=== PATIENT | male | born 1990 | race Caucasian/White ===

== ENCOUNTER 2018-12-11 23:52 | Emergency (ER) | payer SELFPAY ==
[2018-12-11 23:58] VITALS: BP 137/82; PULSE 80; RESP 18; TEMP 36.8; O2SAT 100; BMI 26.6
--- NOTE | 2018-12-12 00:27 | ED_ITS ---
HPI - Male Genitourinary General Chief complaint: Urogenital-Male Stated complaint: wants warts removed Time Seen by Provider: 12/12/18 00:10 Source: patient Mode of arrival: ambulatory Limitations: no limitations History of Present Illness HPI Narrative: Patient is a 28-year-old male here for evaluation of genital warts. He states he has had genital warts for almost a year now. Has not seen a primary doctor regarding them. He states that he becomes very irritated with walking because the location of the warts. Denies any other history of STDs. Related Data Previous Rx's Medication Instructions Recorded podofilox 1 applictn TOP BID 3 Days #3.5 ml 12/12/18 Allergies Allergy/AdvReac Type Severity Reaction Status Date / Time Penicillins [PENICILLINS] Allergy Unknown Unverified 09/23/17 12:28 Review of Systems Gastrointestinal Gastrointestinal: Denies abdominal pain Genitourinary Denies dysuria and Denies scrotal swelling Integumentary/Breasts Comments: Genital warts Hematologic/Lymphatic Denies easy bleeding and Denies easy bruising [facility] Medical History Healthy adult (Acute) Social History Smoking Status: Current every day smoker Social History Smoking Status: Current every day smoker Exam Initial Vital Signs Initial Vital Signs: Vital Signs Temperature 98.2 F 12/11/18 23:58 Pulse Rate 80 12/11/18 23:58 Respiratory Rate 18 12/11/18 23:58 Blood Pressure 137/82 12/11/18 23:58 Pulse Oximetry 100 12/11/18 23:58 Const General: cooperative, healthy appearing, comfortable, well developed, well groomed and No acute distress Orientation: alert and awake Resp Effort & Inspection: normal respiratory effort Cardio Rate: regular rate External: circumcised Penis: normal penis Meatus: meatus normal Scrotum: scrotum normal Testes: normal Skin Other: Patient with multiple genital warts both located on the scrotum and on the penile shaft. He has 2 very large warts located along the fold between the inner thigh in the scrotum bilaterally. Neuro General: alert and awake Course Vital Signs - 8 hr 12/11/18 23:58 Temperature 98.2 F Pulse Rate 80 Respiratory Rate 18 Blood Pressure 137/82 Pulse Oximetry 100 MDM - Male Genitourinary MDM Narrative Medical decision making narrative: Patient's physical exam is consistent with genital warts. These are not new for him. He does have very large warts along either side. None of the warts are causing any problems with urination. Informed the patient that we are unable to ?freeze ?any warts here in the emergency department due to the lack of a quit min to do this. He states he does not have a primary provider. He was given the phone number for the health resources coordinator here at the hospital to help him establish her primary provider. He was given a prescription for the warts which will hopefully help with his symptoms. We did discuss the genital warts. We did discuss that he could potentially passed these on a any sexual partners. Informed him that any treatment for these particular warts does not necessarily cure him of any disease and he could potentially get these again. Patient expressed understanding and agreement. Discharge Plan Departure Patient Disposition: Home Clinical Impression: Genital warts Discharge Date/Time: 12/12/18 00:43 Interventions: ED Discharge Assessment Last Done: 12/12/18 00:43 Instructions: DI for Genital Warts Activity Restrictions/Additional Instructions: On Thursday contact the health human resources supervisor at [phone] to help with establishing a primary provider. Use the medication as directed. Return to the emergency department for any new or worsening symptoms Prescriptions: New podofilox 0.5 % solution 1 applictn TOP BID 3 Days Qty: 3.5 RF: 3
== END 2018-12-12 00:43 | disposition home or self-care (01) ==
PROVIDERS: Emergency Provider Emergency Medicine
DX: A63.0 Anogenital (venereal) warts (principal)
CPT/HCPCS: 99282; 99283

== ENCOUNTER 2020-10-24 08:49 | Emergency (ER) | payer SELFPAY ==
[2020-10-24] VITALS (7 sets, daily range): BP systolic 133–152; BP diastolic 70–89; PULSE 72–89; RESP 18–20; TEMP 36.8; O2SAT 95–99; BMI 27.8
--- NOTE | 2020-10-24 08:56 | DI.RAD.S_ITS ---
PROCEDURE: XR CHEST 2V INDICATIONS: pleuritic chest pain TECHNIQUE: 2 views of the chest were acquired. COMPARISON: None. FINDINGS: Surgical changes and devices: None. Lungs and pleura: Lungs are clear. No pleural effusions or pneumothorax. Mediastinum: Mediastinal contours are normal. Heart size is normal. Bones and chest wall: No suspicious bony abnormalities. Soft tissues appear unremarkable. IMPRESSION: 1. No acute cardiopulmonary disease. Dictated by: Vanita Lehman M.D. on 10/24/2020 at 9:37 Approved by: Vanita Lehman M.D. on 10/24/2020 at 9:38
--- NOTE | 2020-10-24 09:02 | ED_ITS ---
HPI - Chest Pain General Chief Complaint: Chest Pain Stated Complaint: chest pain on left side Time Seen by Provider: 10/24/20 08:50 Source: patient Mode of arrival: Ambulatory Limitations: no limitations History of Present Illness HPI narrative: 30-year-old male smoker who uses a vape pen presents by himself with a chief complaint of a few months of sharp and stabbing left-sided chest pain. He he thinks it seems to get worse when he leans forward. He denies any change with palpation and occasionally has increased pain with deep breath. He denies any cough, hemoptysis or shortness of breath. He denies any recent travel, history of clot Related Data Previous Rx's Medication Instructions Recorded colchicine 0.6 mg PO BID 30 Days #60 tab 10/24/20 ibuprofen 600 mg PO TID 7 Days #21 tab 10/24/20 Allergies Allergy/AdvReac Type Severity Reaction Status Date / Time Penicillins [PENICILLINS] Allergy Unknown Verified 10/24/20 09:27 Review of Systems Constitutional Constitutional: Denies chills, Denies fatigue, Denies fever(s), Denies frequent falls, Denies lethargy and Denies weakness Eyes Eyes: Denies change in vision, Denies eye discharge, Denies irritation and Denies loss of vision ENT Ears, Nose, Mouth, and Throat: Denies change in voice, Denies dizziness, Denies neck pain, Denies sore throat and Denies throat swelling Cardiovascular Cardiovascular: Reports chest pain, Denies irregular heart rhythm, Denies lightheadedness, Denies palpitations, Denies dyspnea, Denies dyspnea on exertion and Denies orthopnea Respiratory Respiratory: Denies cough, Reports pain on inspiration, Denies dyspnea, Denies dyspnea on exertion and Denies wheezing Gastrointestinal Gastrointestinal: Denies abdominal pain, Denies change in bowel habits, Denies diarrhea, Denies nausea and Denies vomiting Musculoskeletal Musculoskeletal: Denies neck pain and Denies numbness Integumentary/Breasts Skin/Breast: Denies pruritus, Denies erythema, Denies rash and Denies wounds Neurologic Neurologic: Denies behavioral changes, Denies confusion, Denies dizziness, Denies frequent falls, Denies loss of vision, Denies numbness and Denies weakness Psychiatric Psychiatric: Denies anxiety, Denies behavioral changes, Denies confusion, Denies depression, Denies homicidal ideation and Denies suicidal ideation Endocrine Endocrine: Denies fatigue, Denies flushing and Denies palpitations Hematologic/Lymphatic Hematologic/Lymphatic: Denies easy bruising Allergic/Immunologic Allergic/Immunologic: Denies urticaria, Denies throat swelling and Denies wheezing Patient History Medical History (Updated 10/24/20 @ 09:47 by Bird Ascencio DO) Healthy adult Social History Smoking Status: Current every day smoker Smoking Status: Current every day smoker alcohol intake frequency: 0-2 drinks per day Substance Use Type: marijuana Exam Narrative Exam Narrative: GENERAL: [30] year old patient appears stated age. Well-no urished, well-developed patient, in mild distress. HEAD: Atraumatic. Normocephalic. EYES: Pupils equal round and reactive. Extraocular motions intact. No scleral icterus. No injection or drainage. ENT: Nose without bleeding, purulent drainage. Throat without erythema, tonsillar hypertrophy or exudate. Airway patent. NECK: Trachea midline. Non tender CARDIOVASCULAR: Regular rate and rhythm without murmurs, gallops, or rubs. RESPIRATORY: Clear to auscultation. Breath sounds equal bilaterally. No wheezes, rales, or rhonchi. GASTROINTESTINAL: Abdomen soft, non-tender, nondistended. EXTREMITIES: No edema or joint tenderness. BACK: Nontender without deformity or crepitance. No flank tenderness. NEURO: AOx3. SKIN: No rash or erythema of visible areas Initial Vital Signs Initial Vital Signs: Vital Signs Pulse Rate 89 10/24/20 08:56 Pulse Oximetry 98 10/24/20 08:56 Course Orders Ordered: ED Orders 10/24/20 08:56 XR chest 2V Stat EKG-12 Lead Stat 10/24/20 09:19 Basic Metabolic Panel Stat C-Reactive Protein Quant Stat Complete Blood Count AUTO DIFF Stat Erythrocyte Sedimentation Rate Stat Troponin & CK Cardiac Panel Stat Discontinued Medications Ketorolac Tromethamine (Ketorolac 30 Mg/Ml Vial) 15 mg IV NOW ONE Stop: 10/24/20 09:13 Last Admin: 10/24/20 09:28 Dose: 15 mg Documented by: REGINA Vital Signs Vital signs: Vital Signs - 8 hr 10/24/20 08:56 10/24/20 09:00 10/24/20 09:05 Temperature Pulse Rate 89 86 72 Respiratory Rate 20 Blood Pressure 142/77 H Pulse Oximetry 98 98 98 10/24/20 09:07 10/24/20 09:30 Temperature 98.3 F Pulse Rate 89 86 Respiratory Rate 18 Blood Pressure 149/89 H 152/73 H Pulse Oximetry 99 97 MDM - Chest Pain Lab Data Result diagrams: 10/24/20 09:19 10/24/20 09:19 Labs: Lab Results 10/24/20 10/24/20 Range/Units 09:19 09:19 WBC 10.3 (4.5-11.0) X10^3/uL RBC 4.73 (4.5-5.9) X10^6/uL Hgb 15.7 (13.5-17.5) g/dL Hct 46.3 (41-53) % MCV 97.8 (80-100) fL MCH 33.3 (26-34) PG MCHC 34.0 (30-36) % RDW 14.3 (11.6-14.8) % Plt Count 260 (150-400) X10^3/uL Neut % (Auto) 70.4 (50-75) % Lymph % (Auto) 20.6 L (25-40) % Carbon % (Auto) 6.5 (3-14) % Eos % (Auto) 2.0 (2-4) % Baso % (Auto) 0.5 (0-2) % Neut # (Auto) 7200 H (1482-1987) /uL Lymph # (Auto) 2100 (4695-7578) /uL Carbon # (Auto) 700 (0-900) /uL Eos # (Auto) 200 (0-450) /uL Baso # (Auto) 100 (0-100) /uL ESR 7 (0-15) MM/HR Sodium 141 (137-145) mmol/L Potassium 3.9 (3.4-5.1) mmol/L Chloride 106 (98-107) mmol/L Carbon Dioxide 26 (22-32) mmol/L BUN 8 L (9-20) mg/dL Creatinine 0.94 (0.66-1.25) mg/dL Estimated GFR > 60.0 (>60) mL/min BUN/Creatinine Ratio 8.5 (6-22) Glucose 114 H (70-100) mg/dL Calcium 10.2 (8.4-10.2) mg/dL Total Creatine Kinase 90 (55-170) U/L CK-MB (CK-2) TNP CK-MB (CK-2) Rel Index TNP Troponin I < 0.012 (0.01-0.034) ng/mL C-Reactive Protein 1.8 H (<1.0) mg/dL Imaging Data Chest x-ray: Radiologist's Impression: [address] [id number] ReportSigned Patient: Melvin Arreola CMR#: [id number]: 1990Acct:[id number]/Sex: 30 / MDate of Service: 10/24/20Loc: EDAccession Number: [id number] Procedure: XR chest 2V Ordering Provider: Bird Ascencio D.O. PROCEDURE: XR CHEST 2V INDICATIONS: pleuritic chest pain TECHNIQUE: 2 views of the chest were acquired. COMPARISON: None. FINDINGS: Surgical changes and devices: None. Lungs and pleura: Lungs are clear. No pleural effusions or pneumothorax. Mediastinum: Mediastinal contours are normal. Heart size is normal. Bones and chest wall: No suspicious bony abnormalities. Soft tissues appear unremarkable. IMPRESSION: 1. No acute cardiopulmonary disease. Dictated by: Vanita Lehman M.D. on 10/24/2020 at 9:37 Approved by: Vanita Lehman M.D. on 10/24/2020 at 9:38 ECG Data Interpretation: EKG is normal sinus rhythm rate [96 ] and free of any signs of i schemia or ectopy. No ST segmental elevation or depression. No T wave inversion. As needed depressions in multiple leads, question pericarditis MDM Narrative Medical decision making narrative: Multiple causes of chest pain considered including PR, PE, pneumothorax, pneumonia, aortic dissection, and pleurisy. Patient reports no radiation, no diaphoresis, no provocation with exertion, and no vomiting Given pleuritic nature of his pain changes position, PVR depressions on EKG and elevated inflammatory markers pericarditis would seem the most likely diagnosis. Patient has been given extensive return precautions and has had questions answered to his apparent satisfaction Discharge Plan Departure Patient Disposition: Home Clinical Impression: Chest pain, pleuritic Pericarditis Qualifiers: Pericarditis type: unspecified type Chronicity: acute Qualified Code(s): I30.9 - Acute pericarditis, unspecified Instructions: DI for Pericarditis Activity Restrictions/Additional Instructions: *You have been diagnosed with [ongoing left-sided chest pain most consistent with an inflammatory condition called pericarditis] *What to do: *Please continue to take your regular medications as directed. [x] New medication prescriptions sent to your pharmacy: [[facility] in [place] ] [ ] New medication written as a paper prescription [ ] No new medications given *Please follow up with your primary care provider in 2-3 days, call for an appointment. Let them know you were seen in the Emergency Department and that we ask that you be seen in follow up. We will electronically transmit a record of today's note if your PCP is in our system *If you do not have a primary care provider please contact the [facility] Resource line at [phone]. They will ask some questions about your medical history and help get you set up with a doctor in the community. *Return to Emergency Department if you should have any new, worsening or concerning symptoms, such as [fever greater than 101 F, shaking chills, worsening pain, persistent vomiting or other bothersome symptoms] Prescriptions: New ibuprofen 600 mg tablet 600 mg PO TID 7 Days Qty: 21 RF: 0 colchicine 0.6 mg tablet 0.6 mg PO BID 30 Days Qty: 60 RF: 0
[2020-10-24 09:26] LABS: Add Manual Diff / Slide Review NO; Basophils Absolute Auto 100 /uL (0-100); Basophils Percent Auto 0.5 % (0-2); Eosinophils Absolute Auto 200 /uL (0-450); Hematocrit 46.3 % (41-53); Hemoglobin 15.7 g/dL (13.5-17.5); Lymphocytes Absolute Auto 2100 /uL (1100-4500); Lymphocytes Percent Auto 20.6 % (25-40); Mean Corpuscular Hemoglobin 33.3 PG (26-34); Mean Corpuscular Volume 97.8 fL (80-100); Monocytes Absolute Auto 700 /uL (0-900); Monocytes Percent Auto 6.5 % (3-14); Neutrophils Absolute Auto 7200 /uL (1500-7000); Neutrophils Percent Auto 70.4 % (50-75); Platelet Count 260 X10^3/uL (150-400); Red Blood Cell Count 4.73 X10^6/uL (4.5-5.9); Red Cell Distribution Width 14.3 % (11.6-14.8); White Blood Cell Count 10.3 X10^3/uL (4.5-11.0)
[2020-10-24] MEDS: KETOROLAC 30 MG/ML VIAL 15 MG IV (09:28)
[2020-10-24 09:39] LABS: BUN Creatinine Ratio 8.5 (6-22); Blood Urea Nitrogen 8 mg/dL (9-20); C-Reactive Protein Quant 1.8 mg/dL (<1.0); Calcium 10.2 mg/dL (8.4-10.2); Carbon Dioxide 26 mmol/L (22-32); Chloride 106 mmol/L (98-107); Creatine Kinase 90 U/L (55-170); Estimated Glomerular Filt Rate > 60.0 mL/min (>60); Glucose 114 mg/dL (70-100); HEMOLYSIS < 15 (0-50); Potassium 3.9 mmol/L (3.4-5.1); Sodium 141 mmol/L (137-145)
[2020-10-24 09:45] LABS: Erythrocyte Sedimentation Rate 7 MM/HR (0-15)
[2020-10-24 09:48] LABS: Troponin I < 0.012 ng/mL (0.01-0.034)
== END 2020-10-24 10:19 | disposition home or self-care (01) ==
PROVIDERS: Emergency Provider Emergency Medicine
DX: R07.81 Pleurodynia (principal); R07.89 Other chest pain; I30.9 Acute pericarditis, unspecified
CPT/HCPCS: 36415; 71046; 80048; 82550; 84484; 85025; 85651; 86140; 93005; 93010; 96374; 99284; 99406; J1885